=== PATIENT | male | born 1960 | race African-American/Black ===

== ENCOUNTER → 2021-04-11 | Outpatient (CLI) | payer OTHER ==
[~2021-04-11] MED LIST: AMLO-187 PO; ASPI-630 PO; CLOP75TA57 PO; LABE300T2 PO; LISI20TA18 PO; LOSA100T14 PO; METF500T16 PO; REGADENOSON 0.4 MG/5 ML DISP.SYRIN. IV ONE; TRIA50CA PO
--- NOTE | 2021-04-14 09:37 | RAD ---
MR#: [id number] Date of Study: 04/11/2021 Ordering Physician: CHE BLEVINS, Referring Physician: AYLIN DONNELLY Tech: RT Holly Woodruff) (N) APPROVED REPORT Test Type: Pharmacological Stress Nurse/Tech: Sarath Salas RN Test Indications: CAD Cardiac History: HTN, 2006=stents x4, See EMR. Medications: See EMR. Medical History: DM, X-Smoker, See EMR. Resting ECG: SR Resting Heart Rate: 77 bpm Resting Blood Pressure: 145/79mmHg Pretest Chest Pain: No chest pain Nurse/Tech Notes Lungs CTA, Heart tones regular. Consent: The procedure was explained to the patient in lay terms. Informed consent was witnessed. Jose Angel eout was entered into [employer]. History and Stress Test performed by RT Kacy (Ngoc) (N) Pharm. Details Pharmacologic stress testing was performed using 0.4mg per 5ml of regadenoson given intravenously ove r 7-10 seconds. Stress Symptoms No chest pain or symptoms. POST EXERCISE Reason for Termination: Infusion complete Max HR: 108 bpm Max Blood Pressure: 154/85mmHg Blood Pressure response to exercise: Normal blood pressure response during stress. Heart Rate response to exercise: WNL Chest Pain: No. Arrhythmia: No. ST Change: No. INTERPRETATION Stress EKG Conclusion: No evidence of stress induced EKG changes. Imaging Protocol IMAGE PROTOCOL: Rest Tc-99m/stress Tc-99m 1 day Rest: Stress: Viability: Radiopharm.Tc99m AnwjzgzevCz92d Sestamibi Dose10.2mCi 31mCi Duration 13min. 13min. Img Date 04/11/2021 04/11/2021 Inj-Img Lofy81ahl. 60min. Rest Admin Site:IV - Left WristAdministrator:RT Holly Woodruff)(N) Stress Admin Site: IV - Left WristAdministrator: RT Holly Woodruff)(N) STRESS DATA End Diast. Vol.106.0mlLVEDV index BSA57.0ml End Syst. Vol.37.0mlLVESV index BSA20.0ml Myocardial Btsr708.0gEject. Jaiorhyj59.0% Stress Scores Regional WT0.00Summed WT5.00 Regional WM0.00Summed WM4.00 The rest and stress images show normal perfusion, normal contraction and thickening. LV Perf. Quant 17 Seg. SSS0.00 17 Seg. SRS0.00 17 Seg. SDS0.00 Stress Defect Extent (% LAD)0.00Rest Defect Extent (% LAD)0.00Rev. Defect Extent (% LAD)0.00 Stress Defect Extent (% LCX) 0.00Rest Defect Extent (% LCX)0.00Rev. Defect Extent (% LCX)0.00 Stress Defect Extent (% RCA)0.00Rest Defect Extent (% RCA)0.00Rev. Defect Extent (% RCA)0.00 Stress Defect Extent (% NIA)0.00Rest Defect Extent (% NIA)0.00Rev. Defect Extent (% NIA)0.00 Other Information Quality:Average Risk Assessment: Low Risk Conclusion 1. No evidence of stress induced EKG changes. 2. Normal perfusion at stress/rest. 3. Subdiaphragmatic attenuation artifact noted. 4. Normal EF at > 65% 5. Low risk study overall. Signed by : Darrell Angel, Electronically Approved : 04/14/2021 09:37:07
== END ==
LOC: NM 09:21
PROVIDERS: ATTEND Internal Medicine Cardiovascular Disease
DX: I25.118 Atherosclerotic heart disease of native coronary artery with other forms of angina pectoris (principal)
CPT/HCPCS: 78452; 93017; A9500; J2785

== ENCOUNTER 2021-05-27 17:48 | Inpatient (IN) | payer OTHER ==
[~2021-05-27] VITALS: Ht 170.2 cm; Wt 76.8 kg
[~2021-05-27 17:48] MED LIST changes: -REGADENOSON 0.4 MG/5 ML DISP.SYRIN. IV ONE
[2021-05-27 18:33] LABS: BASO # 0.1 x10^3/uL (0.0-0.2); BASO % 1 % (0-3); EOS # 1.6 x10^3/uL (0.0-0.7); EOS % 12 % (0-3); HEMOGLOBIN 11.6 g/dL (13.0-17.5); LYMPH # 2.7 x10^3/uL (1.0-4.8); LYMPH % 19 % (24-48); MEAN CORPUSCULAR HEMOGLOBIN 32 pg (25-35); MEAN CORPUSCULAR HGB CONC 33 g/dL (31-37); MEAN CORPUSCULAR VOLUME 96 fL (79-100); MONO % 7 % (0-9); NEUT # 8.6 x10^3/uL (1.8-7.7); NEUT % 61 % (31-73); PLATELET COUNT 376 x10^3/uL (140-400); RED BLOOD COUNT 3.65 x10^6/uL (4.30-5.70); RED CELL DISTRIBUTION WIDTH 14.9 % (11.5-14.5)
[2021-05-27 18:41] LABS: CALCIUM 9.1 mg/dL (8.5-10.1); CREATININE 1.7 mg/dL (0.7-1.3); GFR 50.2; POTASSIUM 4.7 mmol/L (3.5-5.1)
[2021-05-27 18:47] LABS: ALBUMIN 3.6 g/dL (3.4-5.0); TOTAL PROTEIN 7.9 g/dL (6.4-8.2)
[2021-05-27 18:48] LABS: ALBUMIN/GLOBULIN RATIO 0.8 (1.0-1.7); TOTAL BILIRUBIN 0.7 mg/dL (0.2-1.0)
[2021-05-27 19:03] LABS: % LYMPHS 22 % (24-48); % MONOS 9 % (0-10); PLT ESTIMATE ADEQUATE (ADEQUATE)
[2021-05-27 19:04] LABS: % EOS 13 % (0-5); % SEGS 56 % (35-66)
--- NOTE | 2021-05-27 19:04 | EKG ---
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
[2021-05-27 19:15] LABS: BARBITURATES NEG (NEG); BENZODIAZEPINES NEG (NEG); CANNABINOIDS POS (NEG); COCAINE NEG (NEG); METHADONE NEG (NEG); OPIATES NEG (NEG); PHENCYCLIDINE NEG (NEG)
[2021-05-27 19:23] LABS: AMPHETAMINE/METHAMPHETAMINE NEG (NEG)
--- NOTE | 2021-05-27 19:40 | RAD ---
EXAMINATION: Chest radiograph. VIEWS: Single AP view of the chest COMPARISON: None INDICATION:61 years, Male, shortness of air. FINDINGS: Normal cardiomediastinal silhouette. No focal consolidation. No pleural effusion or pneumothorax. No acute osseous process. IMPRESSION: No acute cardiopulmonary process. Electronically signed by: Wesley Bah DO (05/27/2021 7:37 PM) [facility], [facility]
--- NOTE | 2021-05-27 20:43 | PHYS DOC ---
Past Medical History Additional Past Medical Histor: IA with stents placed. Past Surgical History: No Surgical History Smoking Status: Never Smoker Alcohol Use: None General Adult EDM: Chief Complaint: SHORTNESS OF BREATH HPI: HPI: 61-year-old male past medical history of PAD, CKD, diabetes, hypertension, hyperlipidemia with history of CVA, presents to the ED with his , (patient consents to his/her/their knowledge and involvement in pts' medical care), complaints of shortness of breath that started in the hospital after patient had left femoral bypass surgery at [facility] on May 19. Patient states he feels winded, worse with exertion. Tested negative for Covid prior to surgery. Has been vaccinated and received his booster. Reports his left leg is more swollen than his right leg but believes this is due to his surgery. No associated hemoptysis, sore throat, cough, lack of taste or smell, anorexia or fatigue. Patient was seen at [facility] urgent care prior to ED arrival and sent here to assess for pulmonary embolus. Review of Systems: Review of Systems: Constitutional: Denies fever or chills. [] Eyes: Denies change in visual acuity. [] HENT: Denies nasal congestion or sore throat. [] Respiratory: Denies cough or hemoptysis Cardiovascular: Denies chest pain or edema. [] GI: Denies abdominal pain, nausea, vomiting, bloody stools or diarrhea. [] : Denies dysuria or hematuria Musculoskeletal: Denies back pain or joint pain. [] Integument: Denies rash or diaphoresis Neurologic: Denies headache, focal weakness or sensory changes. [] Endocrine: Denies polyuria or polydipsia. [] Lymphatic: Denies swollen glands. [] Psychiatric: Denies depression or anxiety. [] Heart Score: C/O Chest Pain: No Risk Factors: Risk Factors: DM, Current or recent (<one month) smoker, HTN, HLP, family history of CAD, obesity. Risk Scores: Score 0 - 3: 2.5% MACE over next 6 weeks - Discharge Home Score 4 - 6: 20.3% MACE over next 6 weeks - Admit for Clinical Observation Score 7 - 10: 72.7% MACE over next 6 weeks - Early Invasive Strategies Allergies: Allergies: Allergies Coded Allergies Type Severity Reaction Last Updated Verified No Known Drug Allergies 10/26/21 No Physical Exam: PE: Constitutional: Well developed, well nourished, no acute distress, non-toxic appearance. HENT: Normocephalic, atraumatic, Eyes: EOMI, conjunctiva normal, no discharge. Neck: Normal range of motion, supple, Cardiovascular: S1/2 present, regular rhythm Lungs & Thorax: Speaking in full sentences, bilateral equal chest rise, no tachypnea or increased work of breathing, 93% on RA, HR in 90s/low 100s Abdomen: soft, no tenderness, Skin: Warm, dry, no erythema, no rash. [] Extremities: No tenderness, no cyanosis, left lower extremity medial sutures intact with no wound dehiscence or signs of infection, cannot appreciate significant left more than right calf swelling, Neurologic: Alert and oriented X 3, normal motor function, normal sensory function, no focal deficits noted. [] Psychologic: Affect normal, judgement normal, mood normal. [] Current Patient Data: Labs: Laboratory Tests Test 05/27/21 18:03 05/27/21 19:02 White Blood Count 14.0 x10^3/uL (4.0-11.0) H Red Blood Count 3.65 x10^6/uL (4.30-5.70) L Hemoglobin 11.6 g/dL (13.0-17.5) L Hematocrit 35.0 % (39.0-53.0) L Mean Corpuscular Volume 96 fL (79-100) Mean Corpuscular Hemoglobin 32 pg (25-35) Mean Corpuscular Hemoglobin Concent 33 g/dL (31-37) Red Cell Distribution Width 14.9 % (11.5-14.5) H Platelet Count 376 x10^3/uL (140-400) Neutrophils (%) (Auto) 61 % (31-73) Lymphocytes (%) (Auto) 19 % (24-48) L Monocytes (%) (Auto) 7 % (0-9) Eosinophils (%) (Auto) 12 % (0-3) H Basophils (%) (Auto) 1 % (0-3) Neutrophils # (Auto) 8.6 x10^3/uL (1.8-7.7) H Lymphocytes # (Auto) 2.7 x10^3/uL (1.0-4.8) Monocytes # (Auto) 1.0 x10^3/uL (0.0-1.1) Eosinophils # (Auto) 1.6 x10^3/uL (0.0-0.7) H Basophils # (Auto) 0.1 x10^3/uL (0.0-0.2) Segmented Neutrophils % 56 % (35-66) Lymphocytes % 22 % (24-48) L Monocytes % 9 % (0-10) Eosinophils % 13 % (0-5) H Platelet Estimate Adequate (ADEQUATE) Sodium Level 138 mmol/L (136-145) Potassium Level 4.7 mmol/L (3.5-5.1) Chloride Level 104 mmol/L (98-107) Carbon Dioxide Level 22 mmol/L (21-32) Anion Gap 12 (6-14) Blood Urea Nitrogen 38 mg/dL (8-26) H Creatinine 1.7 mg/dL (0.7-1.3) H Estimated GFR (Cockcroft-Gault) 50.2 BUN/Creatinine Ratio 22 (6-20) H Glucose Level 112 mg/dL (70-99) H Calcium Level 9.1 mg/dL (8.5-10.1) Magnesium Level 2.0 mg/dL (1.8-2.4) Total Bilirubin 0.7 mg/dL (0.2-1.0) Aspartate Amino Transferase (AST) 16 U/L (15-37) Alanine Aminotransferase (ALT) 26 U/L (16-63) Alkaline Phosphatase 66 U/L (46-116) Troponin I Quantitative < 0.017 ng/mL (0.000-0.055) KB-Erz-F-Type Natriuretic Peptide 84 pg/mL (0-124) Total Protein 7.9 g/dL (6.4-8.2) Albumin 3.6 g/dL (3.4-5.0) Albumin/Globulin Ratio 0.8 (1.0-1.7) L Lipase 128 U/L (73-393) Urine Opiates Screen Neg (NEG) Urine Methadone Screen Neg (NEG) Urine Barbiturates Neg (NEG) Urine Phencyclidine Screen Neg (NEG) Urine Amphetamine/Methamphetamine Neg (NEG) Urine Benzodiazepines Screen Neg (NEG) Urine Cocaine Screen Neg (NEG) Urine Cannabinoids Screen Pos (NEG) Urine Ethyl Alcohol Neg (NEG) Laboratory Tests 05/27/21 18:03 Laboratory Tests 05/27/21 18:03 Vital Signs: Vital Signs Date Time Temp Pulse Resp B/P (MAP) Pulse Ox O2 Delivery O2 Flow Rate FiO2 05/27/21 18:30 90 20 142/80 (100) 100 Room Air 05/27/21 17:50 98.7 98.7 EKG: EK sinus 77 bpm, no axis deviation, normal intervals, no T wave inversion, no ST elevation or ST depression , no active chest pain 2011 sinus rhythm 96 bpm, no axis deviation, QTC 441, no T wave inversion, no ST elevation or ST depression, no active chest pain [] Radiology/Procedures: Radiology/Procedures: IMAGING REPORT Signed PATIENT: JOSE BAINS ACCOUNT: [id number] : 1960 LOCATION: ER AGE: 61 SEX: M EXAM STATUS: PRE ER ORD. PHYSICIAN: MARTHA PENDLETON DO REASON: soa PROCEDURE: PORTABLE CHEST 1V EXAMINATION: Chest radiograph. VIEWS: Single AP view of the chest COMPARISON: None INDICATION:61 years, Male, shortness of air. FINDINGS: Normal cardiomediastinal silhouette. No focal consolidation. No pleural effusion or pneumothorax. No acute osseous process. IMPRESSION: No acute cardiopulmonary process. Electronically signed by: Paul Bah DO (05/27/2021 7:37 PM) [facility] DICTATED and SIGNED BY: PAUL BAH DO DATE: 05/27/21 [id number] 0 IMAGING REPORT Signed PATIENT: JOSE BAINS ACCOUNT: [id number] : 1960 LOCATION: ER AGE: 61 SEX: M EXAM STATUS: REG ER ORD. PHYSICIAN: MARTHA PENDLETON DO REASON: soa, r/o pe PROCEDURE: VENOUS LOWER EXT BILATERAL EXAMINATION: US BILATERAL LOWEREXTREMITY VENOUS DOPPLER INDICATION: Reason: soa, r/o pe / Spl. Instructions: / History: COMPARISONS: None TECHNIQUE: Grayscale, color and spectral Doppler evaluation of the bilateral lower extremity deep venous system(s) was performed. FINDINGS: bilateral common femoral, femoral and popliteal veins are normally compressible and demonstrate normally directed and appropriately phasic flow with aug mentation. Normal flow is present within the saphenofemoral junctions and deep femoral veins in the proximal thighs and the posterior tibial and peroneal veins in the proximal calves. IMPRESSION: No evidence of the venous thrombosis in either lower extremity Electronically signed by: Paul Bah DO (05/27/2021 8:56 PM) [facility] DICTATED and SIGNED BY: PAUL BAH DO DATE: 05/27/[id number] 0 Course & Med Decision Making: Course & Med Decision Making Pertinent Labs and Imaging studies reviewed. (See chart for details) Concern for postoperative shortness of breath no infiltrate on x-ray, not requiring oxygen. Extremity duplex unremarkable, negative for no DVT. Heart rate is slightly elevated. Per hospital Policy, Covid PCR test is pending and for a VQ scan. CTA of the chest to evaluate for PE is not preferred given patient's chronic renal failure. Will admit to medicine for further medical management. Patient stable at time admission and agrees with this plan. I have spoken with the patient and/or caregivers. I have explained the patient's condition, diagnosis and treatment plan based on the information available to me at this time. I have answered the patient's and/or caregivers questions and answered any concerns. The patient and/or caregivers have as good an understanding of the patient's diagnosis, condition and treatment plan as can be expected at this point. The patient has been stabilized within the capability of the emergency department. The patient will be transported for further care and management or will be moved to an observation or inpatient service. I have communicated with the staff or medical practitioner taking over this patient's care. Dipti Disclaimer: Dipti Disclaimer: This electronic medical record was generated, in whole or in part, using a voice recognition dictation system. Departure Departure Impression: Primary Impression: Shortness of breath at rest Disposition: ADMITTED INPATIENT Admitting Physician: JAMARCUS (Dr. Vogt) Condition: STABLE Referrals: KELBY GUILLORY (PCP) MARTHA PENDLETON DO May 27, 2021 20:43
--- NOTE | 2021-05-27 20:59 | RAD ---
EXAMINATION: US BILATERAL LOWEREXTREMITY VENOUS DOPPLER INDICATION: Reason: soa, r/o pe / Spl. Instructions: / History: COMPARISONS: None TECHNIQUE: Grayscale, color and spectral Doppler evaluation of the bilateral lower extremity deep nicolle ous system(s) was performed. FINDINGS: bilateral common femoral, femoral and popliteal veins are normally compressible and demonstrate justice lly directed and appropriately phasic flow with augmentation. Normal flow is present within the saphenofemoral junctions and deep femoral veins in the proximal thi ghs and the posterior tibial and peroneal veins in the proximal calves. IMPRESSION: No evidence of the venous thrombosis in either lower extremity Electronically signed by: Wesley Bah DO (05/27/2021 8:56 PM) [facility]
[2021-05-27 23:32] VITALS: BP 130/90
[2021-05-28] MEDS ORDERED: ACETAMINOPHEN 500 MG TABLET PO ONE (02:00)
[2021-05-28] MEDS ORDERED: ACETAMINOPHEN 325 MG TABLET. PO PRN (02:30)
[2021-05-28 03:32] VITALS: BP 127/79
--- NOTE | 2021-05-28 05:08 | EKG ---
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
[2021-05-28] MEDS ORDERED: OXYC1TAB15 PO (05:43)
--- NOTE | 2021-05-28 06:41 | PDOC1 ---
History and Physical Date of Admission Date of Admission DATE: 05/28/21 TIME: 06:41 Identification/Chief Complaint Chief Complaint Shortness of breath Source Source: Patient History of Present Illness History of Present Illness Mr Barbour is a 61-year-old male with PMHx PAD, CKD, diabetes, hypertension, hyperlipidemia, CAD s/p stenting, with history of CVA, presents to the ED with his , (patient consents to his/her/their knowledge and involvement in pts' medical care), complaints of shortness of breath that started in the hospital after patient had left femoral bypass surgery at [facility] on May 19. Patient states he feels winded, worse with exertion. Tested negative for Covid prior to surgery. Has been vaccinated and received his booster. Reports his left leg is more swollen than his right leg but believes this is due to his surgery. No associated hemoptysis, sore throat, cough, lack of taste or smell, anorexia or fatigue. Patient was seen at [facility] urgent care prior to ED arrival and sent here to assess for pulmonary embolus. He did have a negative myocardial perfusion study 1 month ago. WBC 14, Hb 11.6, platelets 376, NA 138, K4.7, BUN 30, creatinine 1.7, glucose 112, LFTs within normal laboratory limits, lipase 128, NT proBNP 84, troponin x3 -, urine drug screen only significant for positive cannabinoids rapid COVID-19 negative. Admitted for further observation and care. Past Medical History Cardiovascular: HTN, Hyperlipidemia Renal/: Chronic renal failure Endocrine: Diabetes Past Surgical History Past Surgical History Left femoral-popliteal bypass surgery 05/19/2021 Current Problem List Problem List Problems Medical Problems: (1) Shortness of breath at rest Status: Acute Current Medications Current Medications Current Medications Acetaminophen (Tylenol) 1,000 mg 1X ONCE PO Last administered on 05/28/21at 01:33; Start 05/28/21 at 02:00; Stop 05/28/21 at 02:01; Status DC Acetaminophen (Tylenol) 650 mg PRN Q6HRS PRN PO MILD PAIN / TEMP > 100.3'F; Start 05/28/21 at 02:30 Amlodipine Besylate (Norvasc) 10 mg DAILY PO ; Start 05/28/21 at 09:00 Aspirin (Aspirin Chewable) 81 mg DAILY PO ; Start 05/28/21 at 09:00 Clopidogrel Bisulfate (Plavix) 75 mg DAILY PO ; Start 05/28/21 at 09:00 Metformin HCl (Glucophage) 500 mg BIDWMEALS PO ; Start 05/28/21 at 08:00 Labetalol HCl (Trandate) 300 mg BID PO ; Start 05/28/21 at 09:00 Losartan Potassium (Cozaar) 100 mg DAILY PO ; Start 05/28/21 at 09:00 Non-Formulary Medication (Triamterene (Dyrenium)) 50 mg DAILY PO ; Start 05/28/21 at 09:00; Status UNV Active Scripts Active Reported Percocet 5-325 Mg Tablet (Oxycodone/Acetaminophen) 1 Each Tablet 1 Tab PO PRN Q6HRS PRN Aspirin 81 Mg Tab.chew 81 Mg PO Amlodipine Besylate 10 Mg Tablet 10 Mg PO DAILY Dyrenium (Triamterene) 50 Mg Capsule 50 Mg PO DAILY Losartan Potassium 100 Mg Tablet 100 Mg PO DAILY Metformin Hcl 500 Mg Tablet 500 Mg PO BIDWMEALS Plavix (Clopidogrel Bisulfate) 75 Mg Tablet 75 Mg PO DAILY Labetalol Hcl 300 Mg Tablet 300 Mg PO BID Allergies Allergies: Coded Allergies: No Known Drug Allergies (Unverified , 05/27/21) ROS General: YES: Fatigue, Malaise; No: Chills, Night Sweats, Appetite, Other PSYCHOLOGICAL ROS: No: Anxiety, Behavioral Disorder, Concentration difficultie, Decreased libido, Depression, Disorientation, Hallucinations, Hostility, Irritablity, Memory difficulties, Mood Swings, Obsessive thoughts, Physical abuse, Sexual abuse, Sleep disturbances, Suicidal ideation, Other Eyes: No Blurry vision, No Decreased vision, No Double vision, No Dry eyes, No Excessive tearing, No Eye Pain, No Itchy Eyes, No Loss of vision, No Photophobia, No Scotomata, No Uses contacts, No Uses glasses, No Other HEENT: No: Heacaches, Visual Changes, Hearing change, Nasal congestion, Nasal discharge, Oral lesions, Sinus pain, Sore Throat, Epistaxis, Sneezing, Snoring, Tinnitus, Vertigo, Vocal changes, Other ALLERGY AND IMMUNOLOGY: No: Hives, Insect Bite Sensitivity, Itchy/Watery Eyes, Nasal Congestion, Post Nasal Drip, Seasonal Allergies, Other Hematological and Lymphatic: No: Bleeding Problems, Blood Clots, Blood Transfusions, Brusing, Night Sweats, Pallor, Swollen Lymph Nodes, Other ENDOCRINE: No: Breast Changes, Galactorrhea, Hair Pattern Changes, Hot Flashes, Malaise/lethargy, Mood Swings, Palpitations, Polydipsia/polyuria, Skin Changes, Temperature Intolerance, Unexpected Weight Changes, Other Breast: No New/Changing Breast Lumps, No Nipple changes, No Nipple discharge, No Other Respiratory: YES: Shortness of breath; No: Cough, Hemoptysis, Orthopnea, Pleuritic Pain, SOB with excertion, Sputum Changes, Stridor, Tachypnea, Wheezing, Other Cardiovascular: No Chest Pain, No Palpitations, No Orthopnea, No Paroxysmal Noc. Dyspnea, No Edema, No Lt Headedness, No Other Gastrointestinal: No Nausea, No Vomiting, No Abdominal Pain, No Diarrhea, No Constipation, No Melena, No Hematochezia, No Other Genitourinary: No Dysuria, No Frequency, No Incontinence, No Hematuria, No Retention, No Discharge, No Urgency, No Pain, No Flank Pain, No Other, No , No , No , No , No , No , No Musculoskeletal: No Gait Disturbance, No Joint Pain, No Joint Stiffness, No Joint Swelling, No Muscle Pain, No Muscular Weakness, No Pain In:, No Swelling In:, No Other Neurological: No Behavorial Changes, No Bowel/Bladder ControlChng, No Confusion, No Dizziness, No Gait Disturbance, No Headaches, No Impaired Coord/ba jake, No Memory Loss, No Numbness/Tingling, No Seizures, No Speech Problems, No Tremors, No Visual Changes, No Weakness, No Other Skin: No Dry Skin, No Eczema, No Hair Changes, No Lumps, No Mole Changes, No Mottling, No Nail Changes, No Pruritus, No Rash, No Skin Lesion Changes, No Other, No Acne Physical Exam General: Alert, Oriented X3, Cooperative, mild distress HEENT: Atraumatic, PERRLA, EOMI, Mucous membr. moist/pink Lungs: Clear to auscultation, Normal air movement Heart: S1S2, RRR, no thrills, no rubs, no gallops, no murmurs Extremities: No clubbing, No cyanosis, No edema, Normal pulses, No tenderness/swelling Skin: No rashes, No breakdown, No significant lesion Neuro: Normal gait, Normal speech, Strength at 5/5 X4 ext, Normal tone, Sensation intact, Cranial nerves 3-12 NL, Reflexes 2+ Psych/Mental Status: Mental status NL, Mood NL Vitals Vitals Vital Signs Date Time Temp Pulse Resp B/P (MAP) Pulse Ox O2 Delivery O2 Flow Rate FiO2 05/28/21 03:32 98.0 94 20 127/79 (95) 98 Room Air 98.0 Labs Labs Laboratory Tests Test 05/27/21 18:03 05/27/21 19:02 05/27/21 20:10 05/27/21 20:13 White Blood Count 14.0 x10^3/uL (4.0-11.0) Red Blood Count 3.65 x10^6/uL (4.30-5.70) Hemoglobin 11.6 g/dL (13.0-17.5) Hematocrit 35.0 % (39.0-53.0) Mean Corpuscular Volume 96 fL (79-100) Mean Corpuscular Hemoglobin 32 pg (25-35) Mean Corpuscular Hemoglobin Concent 33 g/dL (31-37) Red Cell Distribution Width 14.9 % (11.5-14.5) Platelet Count 376 x10^3/uL (140-400) Neutrophils (%) (Auto) 61 % (31-73) Lymphocytes (%) (Auto) 19 % (24-48) Monocytes (%) (Auto) 7 % (0-9) Eosinophils (%) (Auto) 12 % (0-3) Basophils (%) (Auto) 1 % (0-3) Neutrophils # (Auto) 8.6 x10^3/uL (1.8-7.7) Lymphocytes # (Auto) 2.7 x10^3/uL (1.0-4.8) Monocytes # (Auto) 1.0 x10^3/uL (0.0-1.1) Eosinophils # (Auto) 1.6 x10^3/uL (0.0-0.7) Basophils # (Auto) 0.1 x10^3/uL (0.0-0.2) Segmented Neutrophils % 56 % (35-66) Lymphocytes % 22 % (24-48) Monocytes % 9 % (0-10) Eosinophils % 13 % (0-5) Platelet Estimate Adequate (ADEQUATE) Sodium Level 138 mmol/L (136-145) Potassium Level 4.7 mmol/L (3.5-5.1) Chloride Level 104 mmol/L (98-107) Carbon Dioxide Level 22 mmol/L (21-32) Anion Gap 12 (6-14) Blood Urea Nitrogen 38 mg/dL (8-26) Creatinine 1.7 mg/dL (0.7-1.3) Estimated GFR (Cockcroft-Gault) 50.2 BUN/Creatinine Ratio 22 (6-20) Glucose Level 112 mg/dL (70-99) Calcium Level 9.1 mg/dL (8.5-10.1) Magnesium Level 2.0 mg/dL (1.8-2.4) Total Bilirubin 0.7 mg/dL (0.2-1.0) Aspartate Amino Transf (AST/SGOT) 16 U/L (15-37) Alanine Aminotransferase (ALT/SGPT) 26 U/L (16-63) Alkaline Phosphatase 66 U/L (46-116) Troponin I Quantitative < 0.017 ng/mL (0.000-0.055) < 0.017 ng/mL (0.000-0.055) CY-Leg-O-Type Natriuretic Peptide 84 pg/mL (0-124) Total Protein 7.9 g/dL (6.4-8.2) Albumin 3.6 g/dL (3.4-5.0) Albumin/Globulin Ratio 0.8 (1.0-1.7) Lipase 128 U/L (73-393) Urine Opiates Screen Neg (NEG) Urine Methadone Screen Neg (NEG) Urine Barbiturates Neg (NEG) Urine Phencyclidine Screen Neg (NEG) Urine Amphetamine/Methamphetamine Neg (NEG) Urine Benzodiazepines Screen Neg (NEG) Urine Cocaine Screen Neg (NEG) Urine Cannabinoids Screen Pos (NEG) Urine Ethyl Alcohol Neg (NEG) SARS-CoV-2 Antigen (Rapid) Negative (NEGATIVE) Test 05/28/21 00:15 Troponin I Quantitative < 0.017 ng/mL (0.000-0.055) Laboratory Tests Test 05/27/21 18:03 05/27/21 19:02 05/27/21 20:10 05/27/21 20:13 White Blood Count 14.0 x10^3/uL (4.0-11.0) Red Blood Count 3.65 x10^6/uL (4.30-5.70) Hemoglobin 11.6 g/dL (13.0-17.5) Hematocrit 35.0 % (39.0-53.0) Mean Corpuscular Volume 96 fL (79-100) Mean Corpuscular Hemoglobin 32 pg (25-35) Mean Corpuscular Hemoglobin Concent 33 g/dL (31-37) Red Cell Distribution Width 14.9 % (11.5-14.5) Platelet Count 376 x10^3/uL (140-400) Neutrophils (%) (Auto) 61 % (31-73) Lymphocytes (%) (Auto) 19 % (24-48) Monocytes (%) (Auto) 7 % (0-9) Eosinophils (%) (Auto) 12 % (0-3) Basophils (%) (Auto) 1 % (0-3) Neutrophils # (Auto) 8.6 x10^3/uL (1.8-7.7) Lymphocytes # (Auto) 2.7 x10^3/uL (1.0-4.8) Monocytes # (Auto) 1.0 x10^3/uL (0.0-1.1) Eosinophils # (Auto) 1.6 x10^3/uL (0.0-0.7) Basophils # (Auto) 0.1 x10^3/uL (0.0-0.2) Segmented Neutrophils % 56 % (35-66) Lymphocytes % 22 % (24-48) Monocytes % 9 % (0-10) Eosinophils % 13 % (0-5) Platelet Estimate Adequate (ADEQUATE) Sodium Level 138 mmol/L (136-145) Potassium Level 4.7 mmol/L (3.5-5.1) Chloride Level 104 mmol/L (98-107) Carbon Dioxide Level 22 mmol/L (21-32) Anion Gap 12 (6-14) Blood Urea Nitrogen 38 mg/dL (8-26) Creatinine 1.7 mg/dL (0.7-1.3) Estimated GFR (Cockcroft-Gault) 50.2 BUN/Creatinine Ratio 22 (6-20) Glucose Level 112 mg/dL (70-99) Calcium Level 9.1 mg/dL (8.5-10.1) Magnesium Level 2.0 mg/dL (1.8-2.4) Total Bilirubin 0.7 mg/dL (0.2-1.0) Aspartate Amino Transf (AST/SGOT) 16 U/L (15-37) Alanine Aminotransferase (ALT/SGPT) 26 U/L (16-63) Alkaline Phosphatase 66 U/L (46-116) Troponin I Quantitative < 0.017 ng/mL (0.000-0.055) < 0.017 ng/mL (0.000-0.055) ZD-Ykz-F-Type Natriuretic Peptide 84 pg/mL (0-124) Total Protein 7.9 g/dL (6.4-8.2) Albumin 3.6 g/dL (3.4-5.0) Albumin/Globulin Ratio 0.8 (1.0-1.7) Lipase 128 U/L (73-393) Urine Opiates Screen Neg (NEG) Urine Methadone Screen Neg (NEG) Urine Barbiturates Neg (NEG) Urine Phencyclidine Screen Neg (NEG) Urine Amphetamine/Methamphetamine Neg (NEG) Urine Benzodiazepines Screen Neg (NEG) Urine Cocaine Screen Neg (NEG) Urine Cannabinoids Screen Pos (NEG) Urine Ethyl Alcohol Neg (NEG) SARS-CoV-2 Antigen (Rapid) Negative (NEGATIVE) Test 05/28/21 00:15 Troponin I Quantitative < 0.017 ng/mL (0.000-0.055) Images Images Venous doppler: bilateral common femoral, femoral and popliteal veins are normally compressible and demonstrate normally directed and appropriately phasic flow with augmentation. Normal flow is present within the saphenofemoral junctions and deep femoral veins in the proximal thighs and the posterior tibial and peroneal veins in the proximal calves. IMPRESSION: No evidence of the venous thrombosis in either lower extremity Chest radiograph: Normal cardiomediastinal silhouette. No focal consolidation. No pleural effusion or pneumothorax. No acute osseous process. IMPRESSION: No acute cardiopulmonary process. [04/11/2021 MPI: 1. No evidence of stress induced EKG changes. 2. Normal perfusion at stress/rest. 3. Subdiaphragmatic attenuation artifact noted. 4. Normal EF at > 65% 5. Low risk study overall.] VTE Prophylaxis Ordered VTE Prophylaxis Devices: Yes VTE Pharmacological Prophylaxi: No Assessment/Plan Assessment/Plan A/P: Shortness of breath - likely some undiagnosed COPD, will r/o PE with VQ study given his impaired renal function PAD - s/p left femoral bypass surgery at [facility] on May 19. Plans for right bypass in the future CKD - stable Diabetes - controlled Hypertension - cont home meds Hyperlipidemia - statin CAD s/p stenting - stable history of CVA - due to HTN, smoking, has quit smoking 20 years ago. FEN - Cardiac diet PPX - heparin FULL CODE Dispo - observation for above. Justifications for Admission Other Justification DOC MUNGUIA MD May 28, 2021 06:41
[2021-05-28 07:00] VITALS: BP 122/77
[2021-05-28] MEDS ORDERED: DEXTROSE 50% 25 GM / 50ML DISP.SYRIN. IV PRN (07:45)
[2021-05-28] MEDS ORDERED: metFORMIN 500 MG TABLET PO SCH (08:00)
[2021-05-28] MEDS: INSULIN LISPRO 300 UNITS/3 ML VIAL. SQ SCH ×2 (08:00→12:00)
[2021-05-28] MEDS ORDERED: ONDANSETRON PF 4 MG/2 ML VIAL. IVP PRN (08:00)
[2021-05-28] MEDS ORDERED: guaiFENesin DM 200MG/20MG 10 ML SYRUP PO PRN (08:00)
[2021-05-28] MEDS ORDERED: LOSARTAN POTASSIUM 50 MG TABLET. PO SCH (09:00)
[2021-05-28] MEDS ORDERED: ASPIRIN CHEWABLE 81 MG TABLET. PO SCH (09:00)
[2021-05-28] MEDS ORDERED: CLOPIDOGREL BISULFATE 75 MG TABLET PO SCH (09:00)
[2021-05-28] MEDS ORDERED: LABETALOL HCL 200 MG TABLET PO SCH (09:00)
[2021-05-28] MEDS ORDERED: TRIAMTERENE 50 MG PO SCH (09:00)
[2021-05-28 11:00] VITALS: BP 119/72
[2021-05-28] MEDS ORDERED: BUDESONIDE 0.5 MG/2 ML NEBU. NEB SCH (12:45)
[2021-05-28] MEDS ORDERED: ALBUTEROL SULFATE 2.5 MG/3 ML NEBU. NEB PRN (12:45)
[2021-05-28] MEDS ORDERED: IPRATRPIUM/ALBUTEROL 0.5/2.5MG 3 ML NEBU. NEB SCH (12:45)
--- NOTE | 2021-05-28 14:36 | RAD ---
V/Q LUNG SCAN CLINICAL INDICATIONS: Dyspnea. Left leg bypass surgery last week. COMPARISON: No previous lung scan. Chest x-ray dated May 27, 2021. TECHNIQUE: After inhalation of 8 mCi of Xenon 133 gas, anterior and posterior planar images of the alpa ng cano were performed in the single breath and equilibrium and washout phases. After IV infusion o f 5.5 mCi of technetium 99m MAA, multiplanar images of both lung cano were performed. FINDINGS: No ventilatory defect or significant air trapping is seen. Normal physiologic perfusion is seen bilaterally. IMPRESSION: Normal V/Q lung scan. Electronically signed by: Collin Hairston MD (05/28/2021 2:34 PM) [id number]
[2021-05-28 15:00] VITALS: BP 128/80
[2021-05-28] MEDS ORDERED: ACLI1AER IH (15:28)
[2021-05-28] MEDS ORDERED: ALBU2.5V8 IH (15:29)
--- NOTE | 2021-05-28 15:47 | NUR ---
patient discharged home with . Meds and follow up reviewed. patient v/u. IV removed intact. pt stable upon dc.
--- NOTE | 2021-05-29 07:43 | PDOC3 ---
Discharge Summary Visit Information Date of Admission: May 28, 2021 Date of Discharge: May 28, 2021 Admitting Diagnosis: Shortness of breath Final Diagnosis Problems Medical Problems: (1) Shortness of breath at rest Status: Acute Brief Hospital Course Allergies Allergies Coded Allergies Type Severity Reaction Last Updated Verified No Known Drug Allergies 05/27/21 No Vital Signs Vital Signs Date Time Temp Pulse Resp B/P (MAP) Pulse Ox O2 Delivery O2 Flow Rate FiO2 05/28/21 15:00 98.5 91 18 128/80 (96) 100 98.5 05/28/21 14:38 Room Air Lab Results Laboratory Tests Test 05/27/21 18:03 05/27/21 19:02 05/27/21 20:10 05/27/21 20:13 White Blood Count 14.0 x10^3/uL (4.0-11.0) Red Blood Count 3.65 x10^6/uL (4.30-5.70) Hemoglobin 11.6 g/dL (13.0-17.5) Hematocrit 35.0 % (39.0-53.0) Mean Corpuscular Volume 96 fL (79-100) Mean Corpuscular Hemoglobin 32 pg (25-35) Mean Corpuscular Hemoglobin Concent 33 g/dL (31-37) Red Cell Distribution Width 14.9 % (11.5-14.5) Platelet Count 376 x10^3/uL (140-400) Neutrophils (%) (Auto) 61 % (31-73) Lymphocytes (%) (Auto) 19 % (24-48) Monocytes (%) (Auto) 7 % (0-9) Eosinophils (%) (Auto) 12 % (0-3) Basophils (%) (Auto) 1 % (0-3) Neutrophils # (Auto) 8.6 x10^3/uL (1.8-7.7) Lymphocytes # (Auto) 2.7 x10^3/uL (1.0-4.8) Monocytes # (Auto) 1.0 x10^3/uL (0.0-1.1) Eosinophils # (Auto) 1.6 x10^3/uL (0.0-0.7) Basophils # (Auto) 0.1 x10^3/uL (0.0-0.2) Segmented Neutrophils % 56 % (35-66) Lymphocytes % 22 % (24-48) Monocytes % 9 % (0-10) Eosinophils % 13 % (0-5) Platelet Estimate Adequate (ADEQUATE) Sodium Level 138 mmol/L (136-145) Potassium Level 4.7 mmol/L (3.5-5.1) Chloride Level 104 mmol/L (98-107) Carbon Dioxide Level 22 mmol/L (21-32) Anion Gap 12 (6-14) Blood Urea Nitrogen 38 mg/dL (8-26) Creatinine 1.7 mg/dL (0.7-1.3) Estimated GFR (Cockcroft-Gault) 50.2 BUN/Creatinine Ratio 22 (6-20) Glucose Level 112 mg/dL (70-99) Calcium Level 9.1 mg/dL (8.5-10.1) Magnesium Level 2.0 mg/dL (1.8-2.4) Total Bilirubin 0.7 mg/dL (0.2-1.0) Aspartate Amino Transf (AST/SGOT) 16 U/L (15-37) Alanine Aminotransferase (ALT/SGPT) 26 U/L (16-63) Alkaline Phosphatase 66 U/L (46-116) Troponin I Quantitative < 0.017 ng/mL (0.000-0.055) < 0.017 ng/mL (0.000-0.055) LP-Xot-C-Type Natriuretic Peptide 84 pg/mL (0-124) Total Protein 7.9 g/dL (6.4-8.2) Albumin 3.6 g/dL (3.4-5.0) Albumin/Globulin Ratio 0.8 (1.0-1.7) Lipase 128 U/L (73-393) Urine Opiates Screen Neg (NEG) Urine Methadone Screen Neg (NEG) Urine Barbiturates Neg (NEG) Urine Phencyclidine Screen Neg (NEG) Urine Amphetamine/Methamphetamine Neg (NEG) Urine Benzodiazepines Screen Neg (NEG) Urine Cocaine Screen Neg (NEG) Urine Cannabinoids Screen Pos (NEG) Urine Ethyl Alcohol Neg (NEG) SARS-CoV-2 RNA (RAUDEL) Negative (Negative) SARS-CoV-2 Antigen (Rapid) Negative (NEGATIVE) Test 05/28/21 00:15 05/28/21 07:22 05/28/21 11:54 Troponin I Quantitative < 0.017 ng/mL (0.000-0.055) Glucose (Fingerstick) 88 mg/dL (70-99) 109 mg/dL (70-99) Laboratory Tests Test 05/28/21 11:54 Glucose (Fingerstick) 109 mg/dL (70-99) Brief Hospital Course Mr Barbour is a 61-year-old male with PMHx PAD, CKD, diabetes, hypertension, hyperlipidemia, CAD s/p stenting, with history of CVA, presents to the ED with his , (patient consents to his/her/their knowledge and involvement in pts' medical care), complaints of shortness of breath that started in the hospital after patient had left femoral bypass surgery at [facility] on May 19. Patient states he feels winded, worse with exertion. Tested negative for Covid prior to surgery. Has been vaccinated and received his booster. Reports his left leg is more swollen than his right leg but believes this is due to his surgery. No associated hemoptysis, sore throat, cough, lack of taste or smell, anorexia or fatigue. Patient was seen at [facility] urgent care prior to ED arrival and sent here to assess for pulmonary embolus. He did have a negative myocardial perfusion study 1 month ago. WBC 14, Hb 11.6, platelets 376, NA 138, K4.7, BUN 30, creatinine 1.7, glucose 112, LFTs within normal laboratory limits, lipase 128, NT proBNP 84, troponin x3 -, urine drug screen only significant for positive cannabinoids rapid COVID-19 negative. Admitted for further observation and care. Underwent VQ scan with low probability for pulmonary embolism. He actually improved with albuterol nebulizer treatment COVID-19 PCR returned negative Repeat physical exam HEENT: Head normocephalic, atraumatic. NECK: Supple LUNGS: Clear to auscultation. HEART: RRR, S1, S2 present, pulses intact ABDOMEN: Soft, positive bowel sounds. EXTREMITIES: No cyanosis or edema. NEUROLOGIC: Normal speech, normal tone PSYCHIATRIC: Normal affect, normal mood. SKIN: No ulceration. Problem list: Shortness of breath - likely some undiagnosed COPD, will r/o PE with VQ study given his impaired renal function PAD - s/p left femoral bypass surgery at [facility] on May 19. Plans for right bypass in the future CKD - stable Diabetes - controlled Hypertension - cont home meds Hyperlipidemia - statin CAD s/p stenting - stable history of CVA - due to HTN, smoking, has quit smoking 20 years ago. Greater than 135 minutes spent on same day admit and discharge Discharge Information Condition at Discharge: Improved Follow Up: Weeks Disposition/Orders: D/C to Home Scheduled Aclidinium Brom/Formoterol Fum (Duaklir Pressair 400-12Mcg INH) 1 Each Aer.pow.ba, 1 EACH IH Q12HR for COPD for 30 Days, #1 Prescribed by: DOC MUNGUIA MD on 05/28/21 1528 Amlodipine Besylate (Amlodipine Besylate) 10 Mg Tablet, 10 MG PO DAILY, (Reported) Entered as Reported by: NANCY LUCERO on 04/11/21832 Last Taken: Unknown Dose on 05/27/21 Last Action: Continued on 05/28/21542 by NOBLE RUSSO Clopidogrel Bisulfate (Plavix) 75 Mg Tablet, 75 MG PO DAILY for TO PREVENT BLOOD CLOTS, #30 Ref 0 (Reported) Entered as Reported by: NANCY LUCERO on 04/11/21832 Last Taken: Unknown Dose on 05/27/21 Last Action: Continued on 05/28/21542 by NOBLE RUSSO Labetalol Hcl (Labetalol Hcl) 300 Mg Tablet, 300 MG PO BID for bp, (Reported) Entered as Reported by: NANCY LUCERO on 04/11/21832 Last Taken: Unknown Dose on 05/27/21 Last Action: Converted on 05/28/21542 by NOBLE RUSSO Losartan Potassium (Losartan Potassium) 100 Mg Tablet, 100 MG PO DAILY for HYPERTENSION, (Reported) Entered as Reported by: NANCY LUCERO on 04/11/21832 Last Taken: Unknown Dose on 05/27/21 Last Action: Converted on 05/28/21542 by NOBLE RUSSO Metformin Hcl (Metformin Hcl) 500 Mg Tablet, 500 MG PO BIDWMEALS for ANTI- DIABETIC, Ref 0 (Reported) Entered as Reported by: NANCY LUCERO on 04/11/21832 Last Taken: Unknown Dose on 05/27/21 Last Action: Continued on 05/28/21542 by NOBLE RUSSO Triamterene (Dyrenium) 50 Mg Capsule, 50 MG PO DAILY, (Reported) Entered as Reported by: NANCY LUCERO on 04/11/21832 Last Taken: Unknown Dose on 05/27/21 Last Action: Converted on 05/28/21542 by NOBLE RUSSO Scheduled PRN Albuterol Sulfate (Proair Hfa Inhaler) 8.5 Gm Hfa.aer.ad, 2 PUFF IH PRN Q4-6HRS PRN for wheezing for 21 Days, #1 Ref 0 Prescribed by: DOC MUNGUIA MD on 05/28/21 1529 Oxycodone/Apap 5-325 (Percocet 5-325 Mg Tablet ) 1 Each Tablet, 1 TAB PO PRN Q6HRS PRN for PAIN, Ref 0 (Reported) Entered as Reported by: NOBLE RUSSO on 05/28/21542 Last Action: New Order on 05/28/21542 by NOBLE RUSSO Miscellaneous Medications Aspirin (Aspirin) 81 Mg Tab.chew, 81 MG PO, (Reported) Entered as Reported by: NANCY LUCERO on 04/11/21832 Last Taken: Unknown Dose on 05/27/21 Last Action: Continued on 05/28/21542 by NOBLE RUSSO Justicifation of Admission Dx: Justifications for Admission: Justification of Admission Dx: Yes DOC MUNGUIA MD May 29, 2021 07:43
== END 2021-05-28 16:00 | disposition home or self-care (01) | DRG 203 ==
LOC: ER 17:48 → 5 SOUTH 20:27
PROVIDERS: ADMIT Internal Medicine; ATTEND Internal Medicine
DX: J20.9 Acute bronchitis, unspecified (principal); J44.9 Chronic obstructive pulmonary disease, unspecified; E11.22 Type 2 diabetes mellitus with diabetic chronic kidney disease; E78.5 Hyperlipidemia, unspecified; I12.9 Hypertensive chronic kidney disease with stage 1 through stage 4 chronic kidney disease, or unspecified chronic kidney disease; I25.10 Atherosclerotic heart disease of native coronary artery without angina pectoris; N18.9 Chronic kidney disease, unspecified; Z20.822 Contact with and (suspected) exposure to COVID-19; Z79.02 Long term (current) use of antithrombotics/antiplatelets; Z79.84 Long term (current) use of oral hypoglycemic drugs; Z86.73 Personal history of transient ischemic attack (TIA), and cerebral infarction without residual deficits; Z95.5 Presence of coronary angioplasty implant and graft
CPT/HCPCS: 36415; 71045; 78582; 80053; 80307; 82962; 83690; 83735; 83880; 84484; 85007; 85025; 87426; 93005; 93970; 94640; 94760; 96374; A9540; A9558; J1815; U0003; U0005; 99285-25; G0378; J7626